=== PATIENT | male | born 1965 | race Caucasian/White ===

== ENCOUNTER 2023-07-27 10:09 | Emergency (ER) | payer SELFPAY ==
[~2023-07-27] VITALS: Ht 172.7 cm; Wt 81.0 kg
[2023-07-27 10:14] VITALS: TEMP 98; O2SAT 100
[2023-07-27] MEDS ORDERED: IBUP-2029 MT (10:22)
[2023-07-27 10:30] VITALS: BP 168/80; PULSE 88; RESP 20
[2023-07-27] MEDS: IBUPROFEN 600MG TABLET PO ONE (10:30)
[2023-07-27] MEDS: DEXAMETHASONE 4MG TABLET PO ONE (10:30)
== END 2023-07-27 12:03 | disposition home or self-care (01) ==
LOC: ER 10:09
DX: J02.9 Acute pharyngitis, unspecified (principal); I10 Essential (primary) hypertension
CPT/HCPCS: 99283; J8540